=== PATIENT | male | born 1985 | race Caucasian/White ===

== ENCOUNTER 2016-08-01 08:14 | Inpatient (IN) | payer MEDICAID ==
[~2016-08-01] VITALS: Ht 170.2 cm; Wt 69.7 kg
[2016-08-01] MEDS ORDERED: ONDANSETRON 4 MG VIAL ONE (08:43)
[2016-08-01] MEDS ORDERED: MORPHINE 4 MG/ML SYR ONE ×2 (08:44→09:01)
[2016-08-01] MEDS ORDERED: SODIUM CHLORIDE 0.9% 1,000 ML ONE (09:01)
[2016-08-01] MEDS ORDERED: LORAZEPAM 2 MG/ML VIAL ONE (09:22)
[2016-08-01] MEDS ORDERED: NEB-ALBUTEROL 2.5 MG/3 ML INH PRN (11:05)
[2016-08-01 11:23] VITALS: BP_SYST 140; BP_SYST 160; TEMP 97.1
[2016-08-01 11:33] VITALS: Ht 170.2 cm; Wt 69.7 kg
[2016-08-01] MEDS: MORPHINE 2 MG/ML SYR IV PRN ×4 (12:37→20:31)
[2016-08-01] MEDS ORDERED: CYCLOBENZAPRINE 10 MG TAB PO PRN (14:10)
[2016-08-01] MEDS: GABAPENTIN 300 MG CAP PO SCH (14:21)
[2016-08-01] MEDS: PANTOPRAZOLE 40 MG TAB PO SCH (14:21)
[2016-08-01] MEDS: FLUTICASONE 0.05% NA BTL NARE EACH SCH (14:23)
[2016-08-01] MEDS: NICOTINE 21 MG/24 HR TRANSDERM SCH (14:23)
[2016-08-01] MEDS: BUPROPION SR 100 MG TAB PO SCH (14:24)
[2016-08-01] MEDS: CEFTRIAXONE 1 GM in SODIUM CHLORIDE 0.9% 50 ML IV SCH (14:49)
[2016-08-01] MEDS: DUONEB INH SCH ×3 (15:25→22:36)
[2016-08-01 15:29] VITALS: RESP 22
[2016-08-01 15:50] VITALS: BP_SYST 140; RESP 18; TEMP 96.7
[2016-08-01] MEDS: NEB-BROVANA 15 MCG/2 ML INH SCH (19:27)
[2016-08-01] MEDS: NEB-BUDESONIDE 0.5 MG INH SCH (19:27)
[2016-08-01 20:20] VITALS: BP_SYST 142; RESP 18; TEMP 97.1
[2016-08-01] MEDS: ZOLPIDEM 5 MG TAB PO PRN (22:15)
[2016-08-01 23:29] VITALS: BP_SYST 152; RESP 16; TEMP 96.7
[2016-08-02] MEDS: MORPHINE 2 MG/ML SYR IV PRN ×7 (02:16→21:45)
[2016-08-02] MEDS: DUONEB INH SCH ×6 (02:51→22:42)
[2016-08-02 04:28] VITALS: BP_SYST 136; RESP 16; TEMP 96.4
[2016-08-02] MEDS ORDERED: SALINE FLUSH 10 ML FLUSH PRN (05:00)
[2016-08-02] MEDS: SODIUM CHLORIDE 0.9% FLUSH BAG 500 ML IV SCH (06:12)
[2016-08-02] MEDS: PANTOPRAZOLE 40 MG TAB PO SCH (06:13)
[2016-08-02] MEDS: NEB-BUDESONIDE 0.5 MG INH SCH ×2 (06:46→19:13)
[2016-08-02] MEDS: NEB-BROVANA 15 MCG/2 ML INH SCH ×2 (06:46→19:13)
[2016-08-02] MEDS: SALINE FLUSH 10 ML FLUSH SCH ×2 (08:00→20:59)
[2016-08-02 08:46] VITALS: BP_SYST 126; RESP 16; TEMP 98.6
[2016-08-02] MEDS: GABAPENTIN 300 MG CAP PO SCH (09:08)
[2016-08-02] MEDS: CEFTRIAXONE 1 GM in SODIUM CHLORIDE 0.9% 50 ML IV SCH (09:08)
[2016-08-02] MEDS: FLUTICASONE 0.05% NA BTL NARE EACH SCH (09:09)
[2016-08-02] MEDS: NICOTINE 21 MG/24 HR TRANSDERM SCH (09:09)
[2016-08-02 11:56] VITALS: BP_SYST 162; RESP 16; TEMP 96.9
[2016-08-02] MEDS ORDERED: MISSING DOSE XX ONE ×2 (13:40→13:45)
[2016-08-02] MEDS: BUPROPION SR 100 MG TAB PO SCH (15:00)
[2016-08-02] MEDS ORDERED: LORAZEPAM 2 MG/ML VIAL IV PRN ×2 (16:30→16:31)
[2016-08-02 17:23] VITALS: BP_SYST 136; RESP 16; TEMP 97.8
[2016-08-02 19:25] VITALS: BP_SYST 132; RESP 18; TEMP 96.5
[2016-08-02] MEDS: ZOLPIDEM 5 MG TAB PO PRN (21:44)
[2016-08-02 22:59] VITALS: BP_SYST 136; RESP 16; TEMP 97.8
[2016-08-03] MEDS: DUONEB INH SCH ×4 (02:54→14:59)
[2016-08-03 03:40] VITALS: BP_SYST 128; RESP 16; TEMP 96.1
[2016-08-03] MEDS: PANTOPRAZOLE 40 MG TAB PO SCH (05:59)
[2016-08-03] MEDS: SODIUM CHLORIDE 0.9% FLUSH BAG 500 ML IV SCH (06:00)
[2016-08-03] MEDS: NEB-BUDESONIDE 0.5 MG INH SCH (07:57)
[2016-08-03] MEDS: NEB-BROVANA 15 MCG/2 ML INH SCH (07:57)
[2016-08-03 08:37] VITALS: BP_SYST 120; RESP 16; TEMP 96.9
[2016-08-03] MEDS: BUPROPION SR 100 MG TAB PO SCH (09:27)
[2016-08-03] MEDS: GABAPENTIN 300 MG CAP PO SCH (09:27)
[2016-08-03] MEDS: FLUTICASONE 0.05% NA BTL NARE EACH SCH (09:27)
[2016-08-03] MEDS: SALINE FLUSH 10 ML FLUSH SCH (09:28)
[2016-08-03] MEDS: MORPHINE 2 MG/ML SYR IV PRN ×2 (09:28→14:21)
[2016-08-03] MEDS: CEFTRIAXONE 1 GM in SODIUM CHLORIDE 0.9% 50 ML IV SCH (09:28)
[2016-08-03] MEDS: NICOTINE 21 MG/24 HR TRANSDERM SCH (09:29)
[2016-08-03 11:08] VITALS: BP_SYST 116; RESP 16; TEMP 96.6
[2016-08-03 14:29] VITALS: BP_SYST 124; RESP 16; TEMP 96.6
[2016-08-03 14:43] VITALS: BP_SYST 124; RESP 16; TEMP 96.6
== END 2016-08-03 15:49 | disposition home or self-care (01) | DRG 201 ==
LOC: ENRESERVDT → ENRESERVTM → ER 08:14 → EMR 10:05 → ENPENDDIS 10:05 → 4THW 11:02
PROVIDERS: ADMIT Internal Medicine; ATTEND Internal Medicine
PROC: 0W9B30Z Drainage of Left Pleural Cavity with Drainage Device, Percutaneous Approach (ICD-10-PCS; principal; 2016-08-01)
CPT/HCPCS: 36415; 71010; 71020; 71250; 80053; 82103; 82553; 82785; 83880; 84484; 85025; 86003; 86701; 93005; 94640; 94667; 94799; 96361; 96374; 96375; 99223; 99232; 99233